=== PATIENT | female | born 1955 | race Caucasian/White ===

== ENCOUNTER 2016-12-18 12:32 | Observation (INO) | payer MEDICARE ==
[~2016-12-18] VITALS: Ht 160 cm; Wt 65.5 kg
[~2016-12-18 12:32] MED LIST: AC325T PO; AC500T PO; ACET-789 PO; ALB0.5V INH; ALBU2.5V12 INH; AMIT25TA9 PO; AMT10T PO; BACL10TA PO; BENZ-13 PO; BUDE0.253 INH; BUDE0.5A5 IH; CALC1TAB3 PO; CHOL10002 PO; CHOL200018 PO; DIAZ5TAB3 PO; DOCU100T2 PO; ESOM2.5S PO; ESOM20CA PO; ESTR0.5T PO; ESTR1TAB24 PO; ESTR2TAB PO; GABA300C PO; GUAI100L28 PO; GUAI5SYR PO; HYDR-3754 PO; IBP200T PO; IPRA3AMP11 INH; LACT1CAP62 PO; LORA10TA7 PO; MMT17NA; MMT17NA NSEACH; MOM10U PO; MONT10TA21 PO; MULT-593 PO; OMEP20CA6 PO; OMG1KC PO; ONDN4T PO; OSLT75C PO; OXYC-109 PO; POLY17PO2 PO; PRCD5U PO; PRD20T PO; PRED10TA PO; TIOT4MIS3 IH; [UNRECOGNIZED DRUG - CODE] IM
--- OUTSIDE RECORDS SUMMARY | 2016-12-18 12:38 | XMS REPORT | Summary of Care ---
Author Author Isaac Varela M.D. Organization Unknown Address Unknown Phone Unavailable Care Team Providers Care Colon Therapist Name Role Phone Yuri Heart, L Unavailable Unavailable Dennys Heart, Son Unavailable Unavailable Ruby Page Unavailable Unavailable Avery Heart, Rama Unavailable Unavailable Maame Heart, Alysa Unavailable Unavailable Edward Mar Unavailable Unavailable Unavailable Unavailable Functional Status Name Dates Details Functional status health issues are not documented Status: Name Dates Details Cognitive status health issues are not documented Status: Problems Name Dates Details Lower back pain (724.2, M54.5) Status: Active Cervical stenosis of spine (723.0, M48.02) Status: Active High risk medication use (V58.69, Z79.899) Status: Active Acute bronchitis, unspecified organism (466.0, J20.9) Status: Active Mild persistent asthma without complication (493.90, J45.30) Status: Active Asthma with acute exacerbation (493.92, J45.901) Status: Active Obstructive sleep apnea (327.23, G47.33) Status: Active Multiple sclerosis (340, G35) Status: Active Multiple sclerosis, relapsing-remitting (340, G35) Status: Active Muscle spasticity (728.85, M62.838) Status: Active Paresthesias/numbness (782.0, R20.9) Status: Active Cervical myelopathy with cervical radiculopathy (721.1, M47.12) Status: Active Left hip pain (719.45, M25.552) Status: Active Medications Name Dates Details Multiple Vitamin TABS TAKE 1 TABLET DAILY. Quantity: 0 Refills: 0 Start 26-Jan-2008 Active Baclofen 20 MG Oral Tablet TAKE 1 TABLET 3 TIMES DAILY. Quantity: 90 Refills: 5 Avery Heart, Isaac Ontiveros Start 03-Aug-2016 Active Pulmicort 0.25 MG/2ML Inhalation Suspension USE 1 UNIT DOSE VIA NEBULIZER DAILY Refills: 0 Start 30-Jul-2008 Active Gabapentin 300 MG Oral Capsule TAKE ONE CAPSULE BY MOUTH THREE TIMES A DAY Quantity: 90 Refills: 5 Avery HeartIsaac Start 07-Oct-2016 Active Amitriptyline HCl - 10 MG Oral Tablet TAKE 2 TABLETS AT BEDTIME. Refills: 0 Start 16-Aug-2009 Active Vitamin D3 Super Strength 2000 UNIT Oral Tablet Refills: 0 Start 16-Aug-2009 Active [place]-3 Fish Oil 1000 MG Oral Capsule TAKE 1 CAPSULE DAILY. Refills: 0 Start 16-Aug-2009 Active Estradiol 1.5 mg Oral Tablet 1mg once a day Refills: 0 Start 16-Aug-2009 Active Ipratropium-Albuterol SOLN Refills: 0 Start 21-Jan-2011 Active Montelukast Sodium 10 MG Oral Tablet TAKE ONE TABLET BY MOUTH EVERY NIGHT AT BEDTIME FOR ASTHMA/ALLERGIES Quantity: 30 Refills: 6 Yuri HeartMusa Start Active Saline Nasal [place] 0.65 % Nasal Solution Purchase Neilmed saline sinus rinse. 4 sprays directed laterally into each nostril twice daily. Quantity: 3 Refills: 0 Dennys HeartWill Start Active 30 ML Bottle Avonex 30 MCG Intramuscular Kit Avonex Pen 5/8 inch 25 Gauge NeedleInject 30 mcg IM wkly. Quantity: 12 Refills: 3 Avery HeartIsaac Start Active 1 Kit Box NexIUM 20 MG Oral Capsule Delayed Release Refills: 0 Fernandez Isabel M.D. Start 02-Aug-2014 Active Supplies CPAP repair, services and supplies, 327.23 Mask, headgear, filters, heated tubing, chinstrap Quantity: 1 Refills: 0 Cain Magaña.Ruby Alejo Start 27-Dec-2014 Active MiraLax Oral Powder MIX 1 CAPFUL (17GM) IN 8 OUNCES OF WATER, JUICE, OR TEA AND DRINK DAILY. Refills: 0 Fernandez Isabel M.D. Start Active Robitussin DM 100-10 MG/5ML SYRP TAKE 2 TEASPOONFULS EVERY 4-6 HOURS NEEDED Refills: 0 Fernandez Isabel M.D. Start Active Tylenol Extra Strength 500 MG Oral Tablet TAKE 2 TABLETS EVERY 4-6 HOURS NEEDED Refills: 0 Maame Heart Fernandez Alysa Start Active Supplies CPAP repair, services, and supplies (dd=830.23)Mask, headgear, filters, heated tubing, chinstrap Quantity: 1 Refills: 0 Maame Heart Fernandez Alysa Start Active Ibuprofen 200 MG Oral Capsule Take 2 tabs every 6 hours prn for discomfort Refills: 0 Isaac Varela M.D. Start 16-Oct-2015 Active Promethazine-Codeine 6.25-10 MG/5ML Oral Syrup TAKE 5 ML EVERY 4 TO 6 HOURS NEEDED FOR COUGH. Quantity: 1 Refills: 2 Cain Magaña.Ruby Alejo Start 16-Jan-2016 Active 120 ML Bottle Supplies CPAP repair, services and supplies, G47.33 Mask, headgear, filters, heated tubing, chinstrap Quantity: 1 Refills: 0 Cain P.ARuby Brown Start Active DiazePAM 2 MG Oral Tablet TAKE 1 TABLET AT BEDTIME. Refills: 0 Isaac Varela M.D. Start Active Avonex Prefilled 30 MCG/0.5ML Intramuscular Prefilled Syringe Kit Inject 30 mcg Intramuscularly once a week Rotate injection site Quantity: 1 Refills: 10 Isaac Varela M.D. Start 07-May-2016 Active Probiotic Oral Capsule Refills: 0 Avery Heart Isaac Rama Start 04-Nov-2016 Active Allergies and Adverse Reactions Name Dates Details Morphine Derivatives (Allergy) Status: Active Penicillins (Allergy) Status: Active Past Medical History Name Dates Details Personal history of multiple pulmonary nodules (V12.69, Z87.09) Status: Resolved Procedures Procedure Dates Details Procedures not documented Immunization Name Dates Details Influenza Lot #: [id number] on: 03-Aug-2012 Family History Name Dates Details Family history of Sleep Apnea Status: Active Name Dates Details Family history of Sleep Apnea Status: Active Family history of Continuous Positive Airway Pressure Ventilation Status: Active Name Dates Details Family history of Continuous Positive Airway Pressure Ventilation Status: Active Family history of sleep apnea (V19.8, Z82.0) Status: Active Social History Name Dates Details - Status: Name Dates Details Never smoker Vital Signs Date Test Result Details 04-Nov-2016 08:39 BP Systolic 126 mm[Hg] Status: Comments: Location: LUE; Position: Sitting BP Diastolic 70 mm[Hg] Status: Comments: Location: LUE; Position: Sitting Heart Rate 105 /min Status: Comments: Location: ; Weight 143.2 lb Status: Physical Findings 95 Status: Comments: O2 Saturation Body Mass Index Calculated 24.58 kg/m2 Status: Body Surface Area Calculated 1.7 m2 Status: Results Date Description Value Details Results not documented Plan of Care Name Dates Details Planned Observations Planned Goals not documented Planned Encounters Appointment; Provider: Isaac Varela M.D. On 05-May-2017 09:45 Appointment; Provider: Jodie Lopez A.P.R.N. On 10:30 Interventions Provided Medication ChangesPredniSONE 10 MG Oral Tablet - Completed Instructions Name Dates Details Instructions not documented Encounters Appointment; Jodie Lopez A.P.R.N. Encounter Diagnosis: Problem not documented On 02-Sep-2016 15:00 Appointment; Isaac Varela M.D. Encounter Diagnosis: Problem not documented On 09:45 Appointment; Fernandez Isabel M.D. Encounter Diagnosis: Problem not documented On 09:30 Appointment; Fernandez Isabel M.D. Encounter Diagnosis: Problem not documented On 16-Jan-2016 14:15 Appointment; Ruby Barlow P.A. Encounter Diagnosis: Problem not documented On 10-Jan-2016 09:15 Appointment; Isaac Varela M.D. Encounter Diagnosis: Problem not documented On 16-Oct-2015 09:30 Appointment; Isaac Varela M.D. Encounter Diagnosis: Problem not documented On 09:30 Appointment; Fernandez Isabel M.D. Encounter Diagnosis: Problem not documented On 10:45 Appointment; Ruby Barlow P.A. Encounter Diagnosis: Problem not documented On 27-Dec-2014 09:00 Appointment; Fernandez Isabel M.D. Encounter Diagnosis: Problem not documented On 05-Nov-2014 10:45
[2016-12-18 12:49] VITALS: BP 126/54
[2016-12-18] MEDS ORDERED: ONDANSETRON 4 MG (ZOFRAN) ORAL DISSOLVE TAB PO PRN (13:10)
[2016-12-18 13:45] LABS: MEAN CORPUSCULAR VOLUME 96 FL (80-100); MEAN PLATELET VOLUME 8.2 FL (6.0-9.5); PLATELET COUNT 478 10^3uL (150-450)
[2016-12-18 13:51] LABS: ABG OXYGEN SATURATION 99 % (95-98); ABG PCO2 27 mmHg (35-45); ABG PH 7.54 (7.35-7.45); ABG PO2 112 mmHg (80-105)
[2016-12-18 13:52] LABS: ARTERIAL BLOOD GAS DELIVERY Nasal Cannula
[2016-12-18 13:59] LABS: MEAN CORPUSCULAR HEMOGLOBIN 32.6 PG (26.0-34.0)
[2016-12-18] MEDS ORDERED: NS FLUSH 3 ML PRN IV (14:00)
[2016-12-18 14:06] VITALS: BP 126/54
[2016-12-18 14:07] LABS: ANION GAP 13.4 MEQ/L (3-15); CALCULATED IONIZED CALCIUM 4.4 mg/dL (3.8-4.6); PHOSPHORUS 3.1 mg/dL (2.4-4.9); TOTAL PROTEIN 6.7 g/dL (6.4-8.5)
[2016-12-18] MEDS ORDERED: AMOX1TAB12 PO (14:42)
[2016-12-18] MEDS ORDERED: PRD10T PO (14:47)
--- NOTE | 2016-12-18 14:47 | HISTORY AND PHYSICAL ---
HISTORY PRIMARY CARE PHYSICIAN: Edward Mar MD CHIEF COMPLAINT: Respiratory distress and asthma exacerbation HISTORY OF PRESENT ILLNESS: This is a 61-year-old very pleasant female admitted from her primary care physician's office as an exacerbation and having failed outpatient management. She had been having increasing dyspnea and tachyphemia. She sees Dr. Isabel with pulmonology as an outpatient. She has received steroids, as well as antibiotics for bronchitis. She has not had improvement in her symptoms. Fortunately she is not requiring oxygen, but is keeping her sats up with tachypnea. While sitting in Dr. Mar's office, per his report, she is mildly uncomfortable and not currently having any retractions. She is medically stable, but is failing outpatient treatment so he requests admission for inpatient management and aggressive respiratory therapy. PAST MEDICAL HISTORY: 1. Significant for multiple sclerosis. 2. Peripheral neuropathy. 3. Asthma. 4. Seasonal allergies. 5. Obstructive sleep apnea. 6. Gastroesophageal reflux disease. PAST SURGICAL HISTORY: 1. Hysterectomy. 2. Kian fundoplication. 3. Cervical spine surgery. 4. Appendectomy. 5. Tonsillectomy. 6. Cholecystectomy. 7. Toe surgery. 8. x2. ALLERGIES: 1. Penicillin. 2. Morphine. CURRENT MEDICATIONS: Please see list. FAMILY HISTORY: SOCIAL HISTORY: She is . She is a DNR. Her is her DPOA. No tobacco, alcohol or drugs. REVIEW OF SYSTEMS: No fever or chills. No changes in vision. She does have seasonal allergies. She does have shortness of breath. No cough. She does have a sore throat. No nausea, vomiting, diarrhea or constipation. No dysuria or hematuria. No weakness, dizziness, rash, joint pain, back pain, anxiety or depression. PHYSICAL EXAM Vitals: Temperature is 97.5, pulse 95, respirations 28; blood pressure is 125/72. O2 sats 97% on room air. General: She is alert and very pleasant. Ophthalmologic: GLYNN, EOMI, conjunctivae within normal limits. Nonicteric. ENT: Oropharynx is normal. Moist mucous are membranes. Neck is supple. Chest: Bronchial sounds. No wheezes, rhonchi or rales. Cardiovascular: Regular rate and rhythm. No murmurs or clicks. Pulse breathing is symmetrical. : Deferred. Abdomen: Soft and distended. Nontender. No organomegaly. Extremities: No edema or clubbing. Skin: No rash. ASSESSMENT AND PLAN: 1. Acute asthma exacerbation with respiratory distress. Mild at this point. We will use oxygen as needed. We will put her on Solu-Medrol IV. We will consider doing viral respiratory panel to evaluate for viral pathogens. We will transition her to p.o. steroids when able and we will monitor closely for now. 2. Multiple sclerosis. We will continue her home medications. 3. Obstructive sleep apnea. WE will continue her BIPAP. 4. Peripheral neuropathy. We will continue her gabapentin. 5. DVT prophylaxis. She is low risk at this point. We will use SCDS while in bed. Thank you Dr. Mar for allowing me to participate in the care of your patient. If you have any questions at any time, please feel free to contact me.
[2016-12-18 14:54] LABS: BAND NEUTROPHILS % 0 % (0-6); EOSINOPHILS % 0 % (0-4); LYMPHOCYTES # 0.7 #; MONOCYTES # 0.2 #; MONOCYTES % 2 % (3-11); RBC MORPH NORMAL (NORMAL); SEGMENTED NEUTROPHILS % 92 % (51-67); TOTAL CELLS COUNTED 100
[2016-12-18 15:35] VITALS: BP 106/62
[2016-12-18] MEDS ORDERED: DIAZEPAM 5 MG (VALIUM) TABLET PO PRN (15:45)
[2016-12-18] MEDS ORDERED: INTERFERON BETA 30 MCG IM SCH (15:45)
[2016-12-18] MEDS ORDERED: POLYETHYLENE GLYCOL 17 GM (MIRALAX) PACKET PO PRN (15:45)
[2016-12-18] MEDS ORDERED: SODIUM CHLORIDE 100 ML ONE (15:58)
[2016-12-18] MEDS: SODIUM CHLORIDE IV SCH ×3 (15:59→23:50)
[2016-12-18] MEDS: METHYLPREDNISOLONE SOD SUCC IV SCH ×3 (15:59→23:50)
[2016-12-18] MEDS: GABAPENTIN 300 MG (NEURONTIN) CAP PO SCH (18:34)
[2016-12-18] MEDS: BACLOFEN 10 MG (LIORESAL) TAB PO SCH (18:42)
[2016-12-18] MEDS: BUDESONIDE NEBS 0.25 MG/2 ML (PULMICORT) AMP INH SCH (20:37)
[2016-12-18] MEDS: ALBUTEROL/IPRATROPIUM 3MG-0.5MG/3ML (DUONEB) NEB VIAL INH SCH (20:37)
[2016-12-18] MEDS: MONTELUKAST 10 MG (SINGULAIR) TAB PO SCH (20:51)
[2016-12-18] MEDS: AMITRIPTYLINE 10 MG (ELAVIL) TAB PO SCH (20:51)
[2016-12-18] MEDS: FLUTICASONE NASAL 50 MCG/SPRAY (FLONASE) 16 GM BTL NS SCH (20:51)
[2016-12-18] MEDS: IBUPROFEN 400 MG (MOTRIN) TABLET PO PRN (20:52)
[2016-12-18] MEDS: DEXTROMETHORPHAN PO PRN (20:52)
[2016-12-18] MEDS: GUAIFENESIN PO PRN (20:52)
[2016-12-18] MEDS: NS FLUSH 10 ML PRN IV (23:50)
[2016-12-18 23:58] VITALS: BP 130/75
[2016-12-19] MEDS: ACETAMINOPHEN 325 MG TAB (TYLENOL) PO PRN (03:25)
[2016-12-19] MEDS ORDERED: SODIUM CHLORIDE 100 ML ONE (06:05)
[2016-12-19] MEDS: METHYLPREDNISOLONE SOD SUCC IV SCH ×4 (06:06→23:57)
[2016-12-19] MEDS: GUAIFENESIN PO PRN ×3 (06:06→21:55)
[2016-12-19] MEDS: SODIUM CHLORIDE IV SCH ×4 (06:06→23:57)
[2016-12-19] MEDS: PANTOPRAZOLE 40 MG (PROTONIX) TAB PO SCH (06:06)
[2016-12-19] MEDS: NS FLUSH 10 ML PRN IV ×2 (06:06→18:43)
[2016-12-19] MEDS: DEXTROMETHORPHAN PO PRN ×3 (06:06→21:55)
[2016-12-19] MEDS: ALBUTEROL/IPRATROPIUM 3MG-0.5MG/3ML (DUONEB) NEB VIAL INH SCH ×3 (07:46→20:02)
[2016-12-19] MEDS: BUDESONIDE NEBS 0.25 MG/2 ML (PULMICORT) AMP INH SCH ×2 (07:46→20:02)
[2016-12-19 08:19] VITALS: BP 136/76
[2016-12-19] MEDS: ESTRADIOL 1 MG (ESTRACE) TABLET PO SCH (08:29)
[2016-12-19] MEDS: CHOLECALCIFEROL 1000 INT UNITS (VITAMIN D3) TABLET PO SCH (08:30)
[2016-12-19] MEDS: BACLOFEN 10 MG (LIORESAL) TAB PO SCH ×3 (08:30→17:22)
[2016-12-19] MEDS: GABAPENTIN 300 MG (NEURONTIN) CAP PO SCH ×3 (08:31→17:22)
[2016-12-19] MEDS: MULTIVITAMIN W/MINERALS (THERAGRAN M) TABLET PO SCH (08:31)
[2016-12-19] MEDS: OMEGA-3 ACID ETHYL ESTERS 1 GM (LOVAZA) CAPSULE PO SCH (08:31)
[2016-12-19] MEDS: IBUPROFEN 400 MG (MOTRIN) TABLET PO PRN ×2 (08:31→19:50)
[2016-12-19] MEDS: NS FLUSH 3 ML DAILY IV SCH (08:32)
[2016-12-19] MEDS: FLUTICASONE NASAL 50 MCG/SPRAY (FLONASE) 16 GM BTL NS SCH ×2 (08:32→21:54)
--- NOTE | 2016-12-19 09:31 | Diagnostic Imaging Report ---
INDICATION: Asthma and cough. COMPARISON: 01/17/2016. FINDINGS: There is mild obstructive lung disease. There is blunting of the posterior costophrenic angle on the lateral view. This is probably on the left. The PA view shows the costophrenic angles to be sharp. The lungs are well aerated with no infiltrate. The heart is not enlarged. There is no pulmonary edema. No pneumothorax. IMPRESSION: Findings suggesting small pleural effusion developing posteriorly on the lateral view since the previous exam. No consolidated infiltrates are demonstrated. Dictated by: Dictated on workstation # [id number]
--- NOTE | 2016-12-19 12:00 | Progress Note-A/P (E) ---
Progress Note Subjective: Patient reports doing better today, although still reporting significant dyspnea. She has not required oxygen over night. She has requested eye drops from the nursing staff. Updated patient regarding care and plan. Questions answered. Objective: Current Medications Current Medications Acetaminophen 650 mg Q6H PRN PO Ondansetron HCl 4 mg Q6H PRN PO Albuterol/ Ipratropium 3 ml BID INH Amitriptyline HCl 20 mg HS PO Baclofen 20 mg TID PO Budesonide 0.25 mg BID INH Cholecalciferol 2,000 unit DAILY PO Diazepam 2.5 mg HS PRN PO Gabapentin 300 mg TID PO Guaifenesin/ Dextromethorphan 10 ml Q8H PRN PO Ibuprofen 400 mg Q6H PRN PO Last administered on 12/19/16t 08:31; Admin Dose 400 MG; Start 12/18/16 at 15:45 Montelukast Sodium 10 mg HS PO Polyethylene Glycol 17 gm DAILY PRN PO Pantoprazole 40 mg DAILY@0700 PO Estradiol 0.5 mg DAILY PO Fluticasone Propionate 1 SPRAY IN EACH NOSTRIL BID NS Multivitamins/ Minerals Therapeutic 1 ea DAILY@0800 PO [id number] Ethyl Esters 1 gm DAILY PO Methylprednisolone Sodium Succinate 125 mg Q12HR IV Vital Signs Date Time Temp Pulse Resp B/P Pulse Ox O2 Delivery O2 Flow Rate FiO2 12/19/16 08:19 97.8 90 18 136/76 95 Room air 0.00 102 I & O Past 24 hrs 12/19/16 07:00 Intake Total 1300 ml Output Total 2950 ml Balance -1650 ml Intake Oral 1300 ml Output Urine Total 2950 ml Physical Exam General--Awake and alert. No distress. HEENT--Normocephalic. MMM in oral cavity. Lungs--Wheezes through out. Fair air flow. Nonlabored respirations. Heart--RRR. No murmurs. Abdomen--Normal bowel sounds. Soft. Nondistended. Nontender. Extremities--No edema. Past 24 hour Lab Results 12/18/16 13:40 Laboratory Results Past 24 Hrs 12/18/16 13:40: Absolute Band Neutrophils 0.0, Alanine Aminotransferase (ALT/SGPT) 38, Albumin 4.0, Albumin/Globulin Ratio 1.481, Alkaline Phosphatase 83, Anion Gap 13.4, Aspartate Amino Transf (AST/SGOT) 21, BUN/Creatinine Ratio 27, Band Neutrophils % 0, Basophils # (Auto) , Basophils # (Manual) 0.0, Basophils % (Manual) 0, Basophils (%) (Auto) , Blood Morphology Comment Normal, Blood Urea Nitrogen 16, Calcium Level 9.7, Calcium/Ionized Calcium Ratio 4.4, Calculated Osmolality 275 , Carbon Dioxide Level 24, Chloride Level 109, Creatinine 0.60, Differential Total Cells Counted 100, Eosinophils # 0.0, Eosinophils # (Auto) , Eosinophils % (Manual) 0, Eosinophils (%) (Auto) , Estimat Glomerular Filtration Rate 122.6 , Estimated GFR (Non- 101.3, Glucose Level 106, Hematocrit 38.20 , Hemoglobin 13.0, Lymphocytes # 0.7, Lymphocytes # (Auto) , Lymphocytes % ( Manual) 6, Lymphocytes (%) (Auto) , Magnesium Level 2.0, Mean Corpuscular Hemoglobin 32.6, Mean Corpuscular Hemoglobin Concent 34.0, Mean Corpuscular Volume 96, Mean Platelet Volume 8.2, Monocytes # 0.2, Monocytes # (Auto) , Monocytes % (Manual) 2, Monocytes (%) (Auto) , Neutrophils # 10.8, Neutrophils # (Auto) , Neutrophils (%) (Auto) , Phosphorus Level 3.1, Platelet Count 478, Potassium Level 4.3, Red Blood Count 3.99, Red Cell Distribution Width 12.2, Segmented Neutrophils % 92, Sodium Level 142, Total Bilirubin 0.5, Total Protein 6.7, White Blood Count 11.70 12/18/16 13:45: Frank Test Pos, Arterial Blood Base Excess 0.0, Arterial Blood HCO3 22.7, Arterial Blood Oxygen Saturation 99, Arterial Blood Partial Pressure CO2 27, Arterial Blood Partial Pressure O2 112, Arterial Blood Total CO2 24.0, Arterial Blood pH 7.54, Blood Gas Liter Flow 3.0, Blood Gas Puncture Site Right radial 12/18/16 14:38: Adenovirus (PCR) Negative, Bordetella parapertussis DNA (PCR) Negative, Chlamydophila pneumoniae (PCR) Negative, Coronavirus Type 229E (PCR) Negative, Coronavirus Type HKU1 (PCR) Negative, Coronavirus Type NL63 (PCR) Negative, Coronavirus Type OC43 (PCR) Negative, Enterovirus/Rhinovirus (PCR) Negative, Human Metapneumovirus (PCR) Negative, Influenza Type A (H1) (PCR) Negative, Influenza Virus Type B (PCR) Negative, Mycoplasma pneumoniae (PCR) Negative, Parainfluenza Type 1 (PCR) Negative, Parainfluenza Type 2 (PCR) Negative, Parainfluenza Type 3 (PCR) Negative, Parainfluenza Type 4 (PCR) Negative, Respiratory Syncytial Virus (PCR) Negative Imaging Results 12.18.16 CXR IMPRESSION: Findings suggesting small pleural effusion developing posteriorly on the lateral view since the previous exam. No consolidated infiltrates are demonstrated. Assessment/Plan Respiratory distress Secondary to asthma exacerbation. Asthma Exacerbation Providing steroids, continuing at 250 mg IV q 6hr (stress dose). Viral PCR is negative. Adjusting breathing treatments to duonebs QID scheduled, adding albuterol q 4 hrs prn, continuing home dose of budesonide, fluticasone (autosub for mometasone ) and montelukast. Seasonal allergies Continuing home montelukast. GERD Providing pantoprazole (auto sub for esomeprazole). MS Patient is on daily prednisone at home (apparently on a tapering dose), currently receiving steroids at stress dosing. TIFF Continue bipap per home machine. Peripheral neuropathy Continuing home gabapentin dose. DVT prophylaxis. She is low risk at this point. We will use SCDS while in bed. Code status DNR FEN Diet as tolerated. Electrolytes normal. No fluids at this time. Dispo Observation for now. JOSE M CHAVEZ MD Dec 19, 2016 11:59
[2016-12-19] MEDS ORDERED: ALBUTEROL 0.083% NEB SOLUTION 2.5 MG/3 ML VIAL INH PRN (13:00)
[2016-12-19] MEDS: ARTIFICIAL TEARS (REFRESH) OPHTHALMIC DROPS OU PRN (13:11)
[2016-12-19 16:34] VITALS: BP 123/60
[2016-12-19] MEDS ORDERED: methylPREDNISolone 125 MG (Solu-MEDROL) VIAL IV SCH (21:00)
[2016-12-19] MEDS: AMITRIPTYLINE 10 MG (ELAVIL) TAB PO SCH (21:55)
[2016-12-19] MEDS: MONTELUKAST 10 MG (SINGULAIR) TAB PO SCH (21:55)
[2016-12-20 00:07] VITALS: BP 144/74
[2016-12-20] MEDS ORDERED: SODIUM CHLORIDE 100 ML ONE (00:54)
[2016-12-20] MEDS ORDERED: NS 100 ML (IVPB) BAG IV ONE (00:55)
[2016-12-20] MEDS: GUAIFENESIN PO PRN ×3 (05:36→21:42)
[2016-12-20] MEDS: DEXTROMETHORPHAN PO PRN ×3 (05:36→21:42)
[2016-12-20] MEDS: SODIUM CHLORIDE IV SCH (05:36)
[2016-12-20] MEDS: METHYLPREDNISOLONE SOD SUCC IV SCH (05:36)
[2016-12-20] MEDS: PANTOPRAZOLE 40 MG (PROTONIX) TAB PO SCH (06:39)
[2016-12-20 07:56] VITALS: BP 148/77
[2016-12-20] MEDS: ARTIFICIAL TEARS (REFRESH) OPHTHALMIC DROPS OU PRN (08:18)
[2016-12-20] MEDS: CHOLECALCIFEROL 1000 INT UNITS (VITAMIN D3) TABLET PO SCH (08:18)
[2016-12-20] MEDS: MULTIVITAMIN W/MINERALS (THERAGRAN M) TABLET PO SCH (08:18)
[2016-12-20] MEDS: FLUTICASONE NASAL 50 MCG/SPRAY (FLONASE) 16 GM BTL NS SCH ×2 (08:18→20:33)
[2016-12-20] MEDS: GABAPENTIN 300 MG (NEURONTIN) CAP PO SCH ×3 (08:18→17:16)
[2016-12-20] MEDS: BACLOFEN 10 MG (LIORESAL) TAB PO SCH ×3 (08:19→17:16)
[2016-12-20] MEDS: OMEGA-3 ACID ETHYL ESTERS 1 GM (LOVAZA) CAPSULE PO SCH (08:19)
[2016-12-20] MEDS: NS FLUSH 3 ML DAILY IV SCH (08:20)
[2016-12-20] MEDS: ESTRADIOL 1 MG (ESTRACE) TABLET PO SCH (08:20)
--- NOTE | 2016-12-20 08:29 | Progress Note-A/P (E) ---
Progress Note Subjective: Patient continues to improve. She still reports significant dyspnea with minimal exertion, including becoming short of air when she walks to the bathroom. She denies any weakness consistent with an MS flair. Discussed current findings and care plan. Objective: Current Medications Acetaminophen 650 mg Q6H PRN PO Ondansetron HCl 4 mg Q6H PRN PO Albuterol/ Ipratropium 3 ml BID INH Amitriptyline HCl 20 mg HS PO Baclofen 20 mg TID PO Budesonide 0.25 mg BID INH Cholecalciferol 2,000 unit DAILY PO Diazepam 2.5 mg HS PRN PO Gabapentin 300 mg TID PO Guaifenesin/ Dextromethorphan 10 ml Q8H PRN PO Ibuprofen 400 mg Q6H PRN PO Last administered on 12/19/16t 08:31; Admin Dose 400 MG; Start 12/18/16 at 15:45 Montelukast Sodium 10 mg HS PO Polyethylene Glycol 17 gm DAILY PRN PO Pantoprazole 40 mg DAILY@0700 PO Estradiol 0.5 mg DAILY PO Fluticasone Propionate 1 SPRAY IN EACH NOSTRIL BID NS Multivitamins/ Minerals Therapeutic 1 ea DAILY@0800 PO [id number]-[id number] Ethyl Esters 1 gm DAILY PO Methylprednisolone Sodium Succinate 125 mg Q12HR IV Vital Signs Date Time Temp Pulse Resp B/P Pulse Ox O2 Delivery O2 Flow Rate FiO2 12/20/16 07:56 97.4 83 20 148/77 95 Room air 12/19/16 16:34 0.00 I & O Past 24 hrs 12/20/16 07:00 Intake Total 2379 ml Output Total 3525 ml Balance -1146 ml Intake Oral 2119 ml IV Total 260 ml Output Urine Total 3525 ml Physical Exam General--Awake and alert. No distress. HEENT--Normocephalic. Atraumatic. MMM in oral cavity Lungs--CTA B. NLR's. Heart--Tachycardic rate, regular rhythm. No murmurs. Abdomen--Normal bowel sounds. S/ND/NTTP. Extremities--No lower extremity edema. Imaging Results 12.18.16 CXR IMPRESSION: Findings suggesting small pleural effusion developing posteriorly on the lateral view since the previous exam. No consolidated infiltrates are demonstrated. Assessment/Plan Respiratory distress Persists. Secondary to asthma exacerbation. Will have PT work with patient tomorrow to evaluate for safety at home. Asthma Exacerbation Providing steroids, initially at 250 mg IV q 6hr (stress dose), decreasing to 125mg q 6hrs. Viral PCR is negative. Adjusting breathing treatments to duonebs QID scheduled, adding albuterol q 4 hrs prn, continuing home dose of budesonide, fluticasone (autosub for mometasone ) and montelukast. Hypertension Likely a result of steroid administration. Patient is not on any antihypertensives at home, will monitor. Seasonal allergies Continuing home montelukast. GERD Providing pantoprazole (auto sub for esomeprazole). MS Patient is on daily prednisone at home (apparently on a tapering dose), currently receiving steroids at stress dosing. TIFF Continue bipap per home machine. Peripheral neuropathy Continuing home gabapentin dose. DVT prophylaxis. She is low risk at this point. We will use SCD's while in bed. Code status DNR FEN Diet as tolerated. Electrolytes normal. No fluids at this time. Dispo Observation status. Monitoring. Patient's dyspnea persists. JOSE M CHAVEZ MD Dec 20, 2016 08:29
[2016-12-20] MEDS: BUDESONIDE NEBS 0.25 MG/2 ML (PULMICORT) AMP INH SCH ×2 (08:31→19:40)
[2016-12-20] MEDS: ALBUTEROL/IPRATROPIUM 3MG-0.5MG/3ML (DUONEB) NEB VIAL INH SCH ×4 (08:31→19:39)
[2016-12-20] MEDS: IBUPROFEN 400 MG (MOTRIN) TABLET PO PRN (14:31)
[2016-12-20 16:00] VITALS: BP 122/63
[2016-12-20] MEDS: methylPREDNISolone 125 MG (Solu-MEDROL) VIAL IV SCH ×2 (18:42→23:49)
[2016-12-20] MEDS: MONTELUKAST 10 MG (SINGULAIR) TAB PO SCH (20:33)
[2016-12-20] MEDS: AMITRIPTYLINE 10 MG (ELAVIL) TAB PO SCH (20:34)
[2016-12-20] MEDS: ACETAMINOPHEN 325 MG TAB (TYLENOL) PO PRN (21:42)
[2016-12-20] MEDS: NS FLUSH 10 ML PRN IV (23:49)
[2016-12-21 00:20] VITALS: BP 152/77
[2016-12-21] MEDS: PANTOPRAZOLE 40 MG (PROTONIX) TAB PO SCH (06:15)
[2016-12-21] MEDS: NS FLUSH 10 ML PRN IV ×2 (06:16→12:11)
[2016-12-21] MEDS: GUAIFENESIN PO PRN (06:16)
[2016-12-21] MEDS: DEXTROMETHORPHAN PO PRN (06:16)
[2016-12-21] MEDS: methylPREDNISolone 125 MG (Solu-MEDROL) VIAL IV SCH ×2 (06:16→12:10)
[2016-12-21] MEDS: BUDESONIDE NEBS 0.25 MG/2 ML (PULMICORT) AMP INH SCH (07:31)
[2016-12-21] MEDS: ALBUTEROL/IPRATROPIUM 3MG-0.5MG/3ML (DUONEB) NEB VIAL INH SCH ×2 (07:31→11:42)
[2016-12-21 07:53] VITALS: BP 157/81
[2016-12-21] MEDS: MULTIVITAMIN W/MINERALS (THERAGRAN M) TABLET PO SCH (08:54)
[2016-12-21] MEDS: FLUTICASONE NASAL 50 MCG/SPRAY (FLONASE) 16 GM BTL NS SCH (08:55)
[2016-12-21] MEDS: ESTRADIOL 1 MG (ESTRACE) TABLET PO SCH (08:55)
[2016-12-21] MEDS: BACLOFEN 10 MG (LIORESAL) TAB PO SCH ×2 (08:55→14:20)
[2016-12-21] MEDS: NS FLUSH 3 ML DAILY IV SCH (08:55)
[2016-12-21] MEDS: CHOLECALCIFEROL 1000 INT UNITS (VITAMIN D3) TABLET PO SCH (08:55)
[2016-12-21] MEDS: GABAPENTIN 300 MG (NEURONTIN) CAP PO SCH ×2 (08:55→14:19)
[2016-12-21] MEDS: OMEGA-3 ACID ETHYL ESTERS 1 GM (LOVAZA) CAPSULE PO SCH (08:55)
[2016-12-21] MEDS: IBUPROFEN 400 MG (MOTRIN) TABLET PO PRN (08:56)
[2016-12-21] MEDS: ARTIFICIAL TEARS (REFRESH) OPHTHALMIC DROPS OU PRN (08:57)
--- NOTE | 2016-12-21 12:24 | Progress Note (E) ---
Progress Note SUBJECTIVE Admitted 12/18 from PCP's office with asthma exacerbation. Respiratory PCR panel was negative. OBJECTIVE Vital Signs Date Time Temp Pulse Resp B/P Pulse Ox O2 Delivery O2 Flow Rate FiO2 12/21/16 07:53 96.8 82 18 157/81 95 Room air 12/19/16 16:34 0.00 I & O 12/20/16 12/21/16 Cumulative From/Thru 18:59 06:59 12/18/16 12:49 - 12/21/16 06:14 Intake Total 1554 ml 1337 ml 6570 ml Output Total 1600 ml 1850 ml 9925 ml Balance -46 ml -513 ml -3355 ml GEN: Awake, interactive, oriented. NAD. HEENT: EOMI, clear sclerae, mildly dry oral mucosa. CV: Regular without murmur. PULM: CTA B with good air movement throughout. No wheezes, rales, or rhonchi. ABD: Soft, non-tender. Normal bowel sounds. EXTR: Trace ankle edema. INTEG: Warm, dry, well-perfused. NEURO: No focal motor neuro deficit. Lab-Past 14 Days, 35 Results 12/18/16 13:40: Absolute Band Neutrophils 0.0, Alanine Aminotransferase (ALT/SGPT) 38, Albumin 4.0, Albumin/Globulin Ratio 1.481, Alkaline Phosphatase 83, Anion Gap 13.4, Aspartate Amino Transf (AST/SGOT) 21, BUN/Creatinine Ratio 27H, Band Neutrophils % 0, Basophils # (Auto) , Basophils # (Manual) 0.0, Basophils % ( Manual) 0, Basophils (%) (Auto) , Blood Morphology Comment Normal, Blood Urea Nitrogen 16, Calcium Level 9.7, Calcium/Ionized Calcium Ratio 4.4, Calculated Osmolality 275L, Carbon Dioxide Level 24, Chloride Level 109H, Creatinine 0.60, Differential Total Cells Counted 100, Eosinophils # 0.0, Eosinophils # (Auto) , Eosinophils % (Manual) 0, Eosinophils (%) (Auto) , Estimat Glomerular Filtration Rate 122.6, Estimated GFR (Non- 101.3, Glucose Level 106, Hematocrit 38.20, Hemoglobin 13.0, Lymphocytes # 0.7, Lymphocytes # (Auto) , Lymphocytes % (Manual) 6L, Lymphocytes (%) (Auto) , Magnesium Level 2.0, Mean Corpuscular Hemoglobin 32.6, Mean Corpuscular Hemoglobin Concent 34.0, Mean Corpuscular Volume 96, Mean Platelet Volume 8.2, Monocytes # 0.2, Monocytes # ( Auto) , Monocytes % (Manual) 2L, Monocytes (%) (Auto) , Neutrophils # 10.8, Neutrophils # (Auto) , Neutrophils (%) (Auto) , Phosphorus Level 3.1#, Platelet Count 478H, Potassium Level 4.3, Red Blood Count 3.99L, Red Cell Distribution Width 12.2, Segmented Neutrophils % 92H, Sodium Level 142, Total Bilirubin 0.5# , Total Protein 6.7, White Blood Count 11.70H 12/18/16 13:45: Frank Test Pos, Arterial Blood Base Excess 0.0, Arterial Blood HCO3 22.7, Arterial Blood Oxygen Saturation 99H, Arterial Blood Partial Pressure CO2 27L, Arterial Blood Partial Pressure O2 112H, Arterial Blood Total CO2 24.0, Arterial Blood pH 7.54H, Blood Gas Liter Flow 3.0, Blood Gas Puncture Site Right radial 12/18/16 14:38: Adenovirus (PCR) Negative, Bordetella parapertussis DNA (PCR) Negative, Chlamydophila pneumoniae (PCR) Negative, Coronavirus Type 229E (PCR) Negative, Coronavirus Type HKU1 (PCR) Negative, Coronavirus Type NL63 (PCR) Negative, Coronavirus Type OC43 (PCR) Negative, Enterovirus/Rhinovirus (PCR) Negative, Human Metapneumovirus (PCR) Negative, Influenza Type A (H1) (PCR) Negative, Influenza Virus Type B (PCR) Negative, Mycoplasma pneumoniae (PCR) Negative, Parainfluenza Type 1 (PCR) Negative, Parainfluenza Type 2 (PCR) Negative, Parainfluenza Type 3 (PCR) Negative, Parainfluenza Type 4 (PCR) Negative, Respiratory Syncytial Virus (PCR) Negative MICRO 12/18 Resp PCR Panel Negative IMAGING 12/18/16 CHEST PA/LAT (2 VIEW)* INDICATION: Asthma and cough. COMPARISON: 2015. FINDINGS: There is mild obstructive lung disease. There is blunting of the posterior costophrenic angle on the lateral view. This is probably on the left. The PA view shows the costophrenic angles to be sharp. The lungs are well aerated with no infiltrate. The heart is not enlarged. There is no pulmonary edema. No pneumothorax. IMPRESSION: Findings suggesting small pleural effusion developing posteriorly on the lateral view since the previous exam. No consolidated infiltrates are demonstrated. ASSESSMENT Erinn Mark is a 61 year old female admitted from clinic 12/18 with acute respiratory distress attributed to asthma with acute exacerbation. She has a few chronic problems including multiple sclerosis. She improved with aggressive steroids and breathing treatments and she was discharged home in improved, stable condition. PLAN * Acute Respiratory Distress: Mild on admit. Oxygen protocol, but none was needed. Treated asthma exacerbation. * Asthma with Acute Exacerbation: Duoneb scheduled, albuterol PRN. Budesonide ( sub for mometasone). Montelukast. Methylprednisolone with transition to prednisone. Taper at discharge (because she has been on prednisone previously.) Peak flow is only 180 at time of discharge. She states she usually has low peak flow and noted on exam that she had good air movement throughout, so did not defer her discharge on the basis of peak flow. After recovery from this illness , recommend full PFT. * Cough: Dextromethorphan. * HTN: Noted during this hospitalization. Attributed to steroids. Not on medication at home. Observe. * Prophylaxis: SCDs * Dispo: Observation. Discharged home in improved, stable condition. CHRONIC ISSUES * Multiple sclerosis: Cholecalciferol * TIFF: Home CPAP. * Peripheral Neuropathy: Gabapentin * Allergic Rhinitis: Fluticasone * GERD: Pantoprazole (sub for omeprazole) * Insomnia: Amitriptyline, diazepam * Baclofen: Uncertain indication. PHI GOLDEN MD Dec 21, 2016 12:24
[2016-12-21] MEDS ORDERED: ALBU2.5V12 INH (14:12)
[2016-12-21] MEDS ORDERED: PRD20T PO (14:12)
[2016-12-21] MEDS ORDERED: IPRA3AMP11 INH (14:12)
[2016-12-21] MEDS ORDERED: ALBU8.5H2 IH (14:15)
--- NOTE | 2016-12-21 14:17 | Discharge Instructions (E) ---
Discharge Instructions Instructions * You were evaluated and treated for asthma exacerbation. You were checked for viral upper respiratory infection but the panel was negative. It is likely that recent smoke and wind aggravated your symptoms. Continue to take Duoneb 4 times daily and albuterol breathing treatments as needed. As your exacerbation improves, you can transition Duoneb back to twice daily. * You should always have a rescue inhaler of albuterol with you when not at home. A prescription for this has been provided. * You will again taper off prednisone at discharge. Review the dose instructions for complete details. Activity Instructions As tolerated. Doctor's Appointment Follow-up with you primary care provider in 1 week. In 4-6 weeks, talk to your doctor about getting a pulmonary function test to further evaluate your asthma. Discharge Diet: PHI Dumont MD Dec 21, 2016 14:17
--- NOTE | 2016-12-21 14:21 | Discharge Summary (E) ---
Discharge Summary (E) Admit Date/Time Dec 18, 2016 at 12:32 Discharge Date/Time Dec 21, 2016 Admitting Provider Richie Barton MD Primary Care Provider Edward Mar MD Attending Provider Richie Barton MD Consulting Provider History and Present Illness Erinn Mark is a 61 year old female admitted from clinic 12/18 with acute respiratory distress attributed to asthma with acute exacerbation. She has a few chronic problems including multiple sclerosis. She improved with aggressive steroids and breathing treatments and she was discharged home in improved, stable condition. Hospital Course and Treatment * Acute Respiratory Distress: Mild on admit. Oxygen protocol, but none was needed. Treated asthma exacerbation. * Asthma with Acute Exacerbation: Duoneb scheduled, albuterol PRN. Budesonide ( sub for mometasone). Montelukast. Methylprednisolone with transition to prednisone. Taper at discharge (because she has been on prednisone previously.) Peak flow is only 180 at time of discharge. She states she usually has low peak flow and noted on exam that she had good air movement throughout, so did not defer her discharge on the basis of peak flow. After recovery from this illness , recommend full PFT. * Cough: Dextromethorphan. Continued her home cough syrup at discharge. * HTN: Noted during this hospitalization. Attributed to steroids. Not on medication at home. Observe. CHRONIC ISSUES * Multiple sclerosis: Cholecalciferol * TIFF: Home CPAP. * Peripheral Neuropathy: Gabapentin * Allergic Rhinitis: Fluticasone (sub for mometasone.) * GERD: Pantoprazole (sub for omeprazole) * Insomnia: Amitriptyline, diazepam * Baclofen: Uncertain indication. Discharge Physicial Exam General Vital Signs Date Time Temp Pulse Resp B/P Pulse Ox O2 Delivery O2 Flow Rate FiO2 12/21/16 07:53 96.8 82 18 157/81 95 Room air 12/19/16 16:34 0.00 GEN: Awake, interactive, oriented. NAD. HEENT: EOMI, clear sclerae, mildly dry oral mucosa. CV: Regular without murmur. PULM: CTA B with good air movement throughout. No wheezes, rales, or rhonchi. ABD: Soft, non-tender. Normal bowel sounds. EXTR: Trace ankle edema. INTEG: Warm, dry, well-perfused. NEURO: No focal motor neuro deficit. Laboratory/Radiology Data WBC on admit was 11.70 with 92% neutrophils and no bands. This was not repeated. ABG on admit showed respiratory alkalosis. Chemistry on admit was unremarkable. Respiratory PCR panel was negative. See EMR for full lab details. . MICRO 12/18 Resp PCR Panel Negative IMAGING 12/18/16 CHEST PA/LAT (2 VIEW)* INDICATION: Asthma and cough. COMPARISON: 2015. FINDINGS: There is mild obstructive lung disease. There is blunting of the posterior costophrenic angle on the lateral view. This is probably on the left. The PA view shows the costophrenic angles to be sharp. The lungs are well aerated with no infiltrate. The heart is not enlarged. There is no pulmonary edema. No pneumothorax. IMPRESSION: Findings suggesting small pleural effusion developing posteriorly on the lateral view since the previous exam. No consolidated infiltrates are demonstrated. Discharge Disposition Discharged home in improved, stable condition. Instructions * You were evaluated and treated for asthma exacerbation. You were checked for viral upper respiratory infection but the panel was negative. It is likely that recent smoke and wind aggravated your symptoms. Continue to take Duoneb 4 times daily and albuterol breathing treatments as needed. As your exacerbation improves, you can transition Duoneb back to twice daily. * You should always have a rescue inhaler of albuterol with you when not at home. A prescription for this has been provided. * You will again taper off prednisone at discharge. Review the dose instructions for complete details. Activity Instructions As tolerated. Appointments Follow-up with you primary care provider in 1 week. In 4-6 weeks, talk to your doctor about getting a pulmonary function test to further evaluate your asthma. Discharge Diet: Regular Discharge Medications New Medications: Albuterol Sulfate (Proair HFA) 8.5 Gm Hfa.aer.ad 2 PUFF IH Q4H PRN DYSPNEA #1 Ref 0 INHALER Albuterol Sulfate (Proventil 0.083%) 2.5 Mg/3 Ml Nebu 2.5 MG INH Q4H PRN DYSPNEA #25 Ref 0 VIAL Albuterol/Ipratropium (Duoneb 3mg-0.5mg/3ml) 3 Ml Nebu 3 ML INH RTQID Continue 4 times daily for the next few days, then gradually decreased to twice daily when improved. #0 Ref 0 VIAL Prednisone (Deltasone) 20 Mg Tab 60 MG PO DAILY@0800 60 mg daily x 2 days, then 40 mg daily x 2 days, then 20 mg daily x 2 days, then 10 mg daily x 2 days, then STOP. #13 TAB Continued Medications: Acetaminophen (Acetaminophen) 500 Mg Tablet 1000 MG PO EVERY 4-6 HRS PRN PAIN TAB Amitriptyline HCl (Elavil) 10 Mg Tab 20 MG PO HS Baclofen (Baclofen) 10 Mg Tablet 20 MG PO TID Budesonide (Pulmicort) 0.25 Mg/2 Ml Nebu 0.25 MG INH BID VIAL Cholecalciferol (Vitamin D3) (Vitamin D3) 1,000 Unit Tab 2000 UNIT PO DAILY TAB Diazepam (Diazepam) 5 Mg Tablet 2.5 MG PO HS PRN INSOMNIA Esomeprazole Magnesium (Nexium) 20 Mg Capsule.dr 20 MG PO DAILY@0700 Estradiol (Estradiol) 0.5 Mg Tablet 0.5 MG PO DAILY Gabapentin (Neurontin) 300 Mg Capsule 300 MG PO TID Ref 0 Guaifenesin/Dextromethorphan (Robitussin DM 100mg-10mg/5ml) 5 Ml Syrup 10 ML PO EVERY 4-6 HRS PRN COUGH BTL Ibuprofen (Ibuprofen) 200 Mg Tablet 400 MG PO Q6H PRN DISCOMFORT TAB Interferon Beta-1A (Avonex Pen) 30 Mcg/0.5 Ml Pen.injctr 30 MCG IM EVERY WEDNESDAY Ref 0 Mometasone Furoate (Nasonex) 17 Gm Naspr 1 SPRAY NSEACH BID Montelukast Sodium (Singulair) 10 Mg Tablet 10 MG PO HS Multivitamin With Minerals (Multiple Vitamin) 1 Each Tablet 1 TAB PO DAILY [place] 3 Polyunsat Fatty Acids (Fish Oil) 1,000 Mg Cap 1000 MG PO DAILY Ref 0 Polyethylene Glycol 3350 (Miralax) 17 Gm Powd.pack 17 GM PO EVERY OTHER DAY Discontinued Medications: Albuterol/Ipratropium (Duoneb 3mg-0.5mg/3ml) 3 Ml Nebu 3 ML INH BID Prednisone (Deltasone) 10 Mg Tab 1 DOSE PO DAILY TAB Follow up New Orders: CXR (CHEST PA/LAT (2 VIEW)* - 01/04/17 Discharge Diagnosis See list above. Problems: Copies to: End of Report . PHI GOLDEN MD Dec 21, 2016 14:21
[2016-12-21 15:42] VITALS: BP 155/78
[2016-12-22] MEDS ORDERED: predniSONE 20 MG (DELTASONE) TABLET PO SCH (08:00)
== END 2016-12-21 16:15 | disposition home or self-care (01) ==
LOC: MED/SURG 12:32
PROVIDERS: ADMIT Family Medicine; ATTEND Family Medicine
DX: J45.901 Unspecified asthma with (acute) exacerbation (principal); G35 Multiple sclerosis; G62.9 Polyneuropathy, unspecified; Z66 Do not resuscitate; K21.9 Gastro-esophageal reflux disease without esophagitis; G47.33 Obstructive sleep apnea (adult) (pediatric); G47.00 Insomnia, unspecified; I15.8 Other secondary hypertension; T38.0X5A Adverse effect of glucocorticoids and synthetic analogues, initial encounter
CPT/HCPCS: 36415; 36600; 71020; 80053; 82803; 83735; 84100; 85025; 87486; 87581; 87633; 87798; 94640; 94760; 96365; 96366; 96376; A9270; G0378; J2930; J7050; 99218